=== PATIENT | male | born 1940 | race Caucasian/White ===

== ENCOUNTER 2017-03-05 17:16 | Emergency (ER) | payer OTHER ==
--- NOTE | 2017-03-05 17:29 | EDPHY ---
HPI/HX/ROS/PE/MDM Narrative: CHIEF COMPLAINT: Confusion HPI: The patient is a 76-year-old male with a history of Alzheimer's disease. He was brought to the emergency department tonight by his for the concern of increased confusion since yesterday. She notes general confusion far beyond his baseline. She has been with him essentially constantly over the last 24 hr and denies fall or trauma. The patient apparently urinated in the wrong place last night. No recent illness but does state he has had a mild cough primarily in the evening. He has had no recent brain imaging. History essentially unobtainable from the patient although he denies any current complaints. REVIEW OF SYSTEMS: Aside from elements discussed in the HPI, a comprehensive 10-point review of systems was reviewed and is negative. Obtained from . PMH: Includes Alzheimer's disease, coronary artery disease with stent, dyslipidemia, HTN. SOCIAL HISTORY: . 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 Here accompanied by his . Retired. PHYSICAL EXAM: General:Patient is alert, in no acute distress. ENT:Eyes are normal to inspection. ENT inspection normal. Neck: Normal inspection. Full range of motion. Respiratory:No respiratory distress. Breath sounds normal bilaterally. Cardiovascular: Regular rate and rhythm. Strong peripheral pulses. Normal cap refill. Abdomen:The abdomen is nontender to palpation. There are no peritoneal signs. There are normal bowel sounds. Back: Normal to inspection. No tenderness to palpation. Skin: Normal color. No rash. Warm and dry. Extremities: Normal appearance. Full range of motion. Neuro: Has difficulty following simple commands - it took approximately 5 minutes to get him to sit down in the exam bed. No focal motor deficits. No pronator drift. Normal fluent speech. Gait is somewhat shuffling, broad-based , slow. MDM: This patient presents with acute confusion in the setting of previously diagnosed Alzheimer's dementia. We performed an extensive workup to try and identify a precipitating etiology for change in mental status, but all tests are normal. I see no signs of CVA, SAH, UTI, ACS, PNA, sepsis or trauma. At time of discharge, patient's temperature was re-checked and he is now febrile. Flu swab sent and positive for Flu A. of patient continues to feel comfortable taking patient home. - Data Points Imaging Results: Imaging Impressions Chest X-Ray 03/05/17 17:21 Impression: Nothing acute identified. No evidence for pneumonia or congestive failure. Head CT 03/05/17 18:29 Impression: Nothing acute. Cerebral atrophy. Results communicated to Dr. Daniels in at 19:21 PM General information for patients regarding this examination can be found at [email or web address]. If you have questions or comments about this report, please contact me at [phone] (hospital) or [phone] ([facility]). Imaging: Discussed imaging studies w/ rd scientist Radiologist, I viewed and interpreted images myself Laboratory Results: Laboratory Results 03/05/17 17:41 03/05/17 17:41 03/05/17 03/05/17 03/05/17 20:15 19:20 17:41 WBC RBC Hgb Hct MCV MCH MCHC RDW Plt Count MPV Neut % (Auto) Lymph % (Auto) [place] % (Auto) Eos % (Auto) Baso % (Auto) Nucleat RBC Rel Count Absolute Neuts (auto) Absolute Lymphs (auto) Absolute Monos (auto) Absolute Eos (auto) Absolute Basos (auto) Absolute Nucleated RBC Immature Gran % Immature Gran # Sodium 140 mEq/L mEq/L (134-144) Potassium 4.4 mEq/L mEq/L (3.5-5.2) Chloride 99 mEq/L mEq/L (97-110) Carbon Dioxide 25 mEq/l mEq/l (22-31) Anion Gap 16 mEq/L mEq/L (8-16) BUN 14 mg/dL mg/dL (7-23) Creatinine 1.3 mg/dL mg/dL (0.7-1.3) Estimated GFR 53 Glucose 135 mg/dL H mg/dL (70-100) Calcium 9.6 mg/dL mg/dL (8.5-10.4) Troponin I < 0.012 ng/mL ng/mL (0.000-0.034) Urine Color DARK YELLOW Urine Appearance CLEAR Urine pH 5.5 (5.0-7.5) Ur Specific [place] 1.025 (1.002-1.030) Urine Protein NEGATIVE (NEGATIVE) Urine Ketones TRACE H (NEGATIVE) Urine Blood NEGATIVE (NEGATIVE) Urine Nitrate NEGATIVE (NEGATIVE) Urine Bilirubin NEGATIVE (NEGATIVE) Urine Urobilinogen 0.2 EU EU (0.2-1.0) Ur Leukocyte Esterase NEGATIVE (NEGATIVE) Urine Glucose NEGATIVE (NEGATIVE) Influenza A,B Rapid POSITIVE FOR FLU A H (NEGATIVE) 03/05/17 17:41 WBC 9.91 10^3/uL H 10^3/uL (3.80-9.50) RBC 5.40 10^6/uL 10^6/uL (4.40-6.38) Hgb 16.9 g/dL g/dL (13.7-17.5) Hct 48.8 % % (40.0-51.0) MCV 90.4 fL fL (81.5-99.8) MCH 31.3 pg pg (27.9-34.1) MCHC 34.6 g/dL g/dL (32.4-36.7) RDW 12.7 % % (11.5-15.2) Plt Count 125 10^3/uL L 10^3/uL (150-400) MPV 10.3 fL fL (8.7-11.7) Neut % (Auto) 87.7 % H % (39.3-74.2) Lymph % (Auto) 6.9 % L % (15.0-45.0) [place] % (Auto) 4.6 % % (4.5-13.0) Eos % (Auto) 0.3 % L % (0.6-7.6) Baso % (Auto) 0.2 % L % (0.3-1.7) Nucleat RBC Rel Count 0.0 % % (0.0-0.2) Absolute Neuts (auto) 8.69 10^3/uL H 10^3/uL (1.70-6.50) Absolute Lymphs (auto) 0.68 10^3/uL L 10^3/uL (1.00-3.00) Absolute Monos (auto) 0.46 10^3/uL 10^3/uL (0.30-0.80) Absolute Eos (auto) 0.03 10^3/uL 10^3/uL (0.03-0.40) Absolute Basos (auto) 0.02 10^3/uL 10^3/uL (0.02-0.10) Absolute Nucleated RBC 0.00 10^3/uL 10^3/uL (0-0.01) Immature Gran % 0.3 % % (0.0-1.1) Immature Gran # 0.03 10^3/uL 10^3/uL (0.00-0.10) Sodium Potassium Chloride Carbon Dioxide Anion Gap BUN Creatinine Estimated GFR Glucose Calcium Troponin I Urine Color Urine Appearance Urine pH Ur Specific [place] Urine Protein Urine Ketones Urine Blood Urine Nitrate Urine Bilirubin Urine Urobilinogen Ur Leukocyte Esterase Urine Glucose Influenza A,B Rapid Medications Given: Discontinued Medications Acetaminophen (Tylenol) 650 mg PO EDNOW ONE Stop: 03/05/17 20:22 Last Admin: 03/05/17 20:27 Dose: 650 mg Sodium Chloride (Ns) 500 mls @ 1,000 mls/hr IV EDNOW ONE PRN Reason: Protocol Stop: 03/05/17 18:46 Last Admin: 03/05/17 18:36 Dose: 500 mls Oseltamivir Phosphate (Tamiflu) 75 mg PO EDNOW ONE Stop: 03/05/17 20:50 Last Admin: 03/05/17 20:57 Dose: 75 mg General Time Seen by Provider: 03/05/17 17:20 Initial Vital Signs: Initial Vital Signs Temperature (C) 37.0 C 03/05/17 17:38 Heart Rate 88 03/05/17 17:38 Respiratory Rate 20 03/05/17 17:38 Blood Pressure 118/66 03/05/17 17:38 O2 Sat (%) 94 03/05/17 17:38 O2 Delivery Mode Room Air Allergies/Adverse Reactions: No Known Allergies Allergy (Verified 03/05/17 17:34) Home Medications: Medication Instructions Recorded Aspirin EC [Aspirin EC 81 mg (*)] 81 mg PO HS 11/22/13 Citalopram [CeleXA 20 MG] 10 mg PO Q2D 11/22/13 Ibuprofen [Motrin (*)] 400 mg PO BID 11/22/13 Lisinopril [Zestril 10 mg (*)] 10 mg PO DAILY 11/22/13 Memantine HCl [Namenda Xr] 28 mg PO DAILY 11/22/13 Metoprolol Tartrate [Lopressor 25 25 mg PO BID 11/22/13 mg (*)] Multivitamins [Multivitamin (*)] 1 each PO DAILY 11/22/13 Omeprazole [Prilosec 20 mg] 20 mg PO BID 11/22/13 Clopidogrel Bisulfate [Plavix (*)] 75 mg PO DAILY #30 tab 11/23/13 Donepezil HCl 03/05/17 Fish Oil 1,200 mg Fish Oil 03/05/17 Oseltamivir Phosphate [Tamiflu 75 75 mg PO BID #10 cap 03/05/17 mg (*)] Departure - Departure Clinical Impression: Altered mental status, Influenza A Condition: Good Instructions: Influenza (ED), Altered Mental Status (ED) Additional Instructions: Keep close eye on patient to ensure he does no harm accidentally to himself. Follow-up with your primary doctor on Tuesday for re-evaluation. Return to the ED for worsening mental state, pain, fever, difficulty walking or speaking or other concerns/. Referrals: Poornima Castro MD [Primary Care Provider] - As per Instructions Prescriptions: Oseltamivir Phosphate [Tamiflu 75 mg (*)] 75 mg PO BID #10 cap
[2017-03-05 17:47] LABS: % IMMATURE GRANULYOCYTES 0.3 % (0.0-1.1); ABSOLUTE IMMATURE GRANULOCYTES 0.03 10^3/uL (0.00-0.10); ADD DIFF? NO; ADD MORPH? NO; ADD SCAN? NO; ATYPICAL LYMPHOCYTE FLAG 0 (0-99); FRAGMENT RBC FLAG 0 (0-99); HEMATOCRIT 48.8 % (40.0-51.0); HEMOGLOBIN 16.9 g/dL (13.7-17.5); LEFT SHIFT FLG 0 (0-99); LIPEMIA HEMOLYSIS FLAG 90 (0-99); MEAN CELL HEMOGLOBIN 31.3 pg (27.9-34.1); MEAN CELL HEMOGLOBIN CONCENTR. 34.6 g/dL (32.4-36.7); MEAN CELL VOLUME 90.4 fL (81.5-99.8); MEAN PLATELET VOLUME 10.3 fL (8.7-11.7); PLATELET CLUMPS FLAG 30 (0-99); PLATELET COUNT 125 10^3/uL (150-400); RED CELL DISTRIBUTION WIDTH 12.7 % (11.5-15.2)
--- NOTE | 2017-03-05 17:56 | CPEKG ---
Heart Rate: 93 RR Interval: 645 P-R Interval: 152 QRSD Interval: 80 QT Interval: 340 QTC Interval: 423 P [place]: 61 QRS [place]: 36 T Wave [place]: 85 EKG Severity - ABNORMAL ECG - EKG Impression: SINUS RHYTHM EKG Impression: lateral ST changes Electronically Signed By: Joce Varela 07-Mar-2017 21:35:54
[2017-03-05 18:02] LABS: ANION GAP 16 mEq/L (8-16); CALCIUM 9.6 mg/dL (8.5-10.4); CARBON DIOXIDE 25 mEq/l (22-31); CHLORIDE 99 mEq/L (97-110); CREATININE 1.3 mg/dL (0.7-1.3); GLOMERULAR FILTRATION RATE 53; GLUCOSE 135 mg/dL (70-100); POTASSIUM 4.4 mEq/L (3.5-5.2); SODIUM 140 mEq/L (134-144)
[2017-03-05 18:12] LABS: TROPONIN I < 0.012 ng/mL (0.000-0.034)
[2017-03-05] MEDS ORDERED: NS 500 ML IV ONE (18:17)
[2017-03-05 19:42] LABS: LEUKOCYTE ESTERASE,URINE NEGATIVE (NEGATIVE); NITRITE,URINE NEGATIVE (NEGATIVE); PH,URINE 5.5 (5.0-7.5)
[2017-03-05 19:44] LABS: COLOR DARK YELLOW
[2017-03-05] MEDS ORDERED: ACETAMINOPHEN 325 MG TAB PO ONE (20:21)
[2017-03-05 20:39] VITALS: TEMP 102
[2017-03-05] MEDS ORDERED: OSELTAMIVIR PHOSPHATE 75 MG CAP PO ONE (20:49)
[2017-03-05 20:59] VITALS: BP 123/62; PULSE 88; RESP 20; O2SAT 95
--- NOTE | 2017-03-07 16:14 | CPEKG ---
Heart Rate: 88 RR Interval: 682 P-R Interval: 160 QRSD Interval: 78 QT Interval: 340 QTC Interval: 412 P [place]: 57 QRS [place]: 47 T Wave [place]: 51 EKG Severity - NORMAL ECG - EKG Impression: SINUS RHYTHM Electronically Signed By: Joce Varela 07-Mar-2017 21:35:24
== END 2017-03-05 21:00 | disposition home or self-care (01) ==
LOC: CED 17:16
DX: R41.82 Altered mental status, unspecified (principal); J10.1 Influenza due to other identified influenza virus with other respiratory manifestations; I10 Essential (primary) hypertension; I25.10 Atherosclerotic heart disease of native coronary artery without angina pectoris; Z79.82 Long term (current) use of aspirin; Z95.5 Presence of coronary angioplasty implant and graft
CPT/HCPCS: 70450-PO; 71020-PO; 80048-PO; 81003-PO; 84484-PO; 85025-PO; 87400-PO

== ENCOUNTER 2017-05-10 18:02 | Emergency (ER) | payer OTHER ==
--- NOTE | 2017-05-10 18:18 | EDPHY ---
H & P Time Seen by Provider: 05/10/17 18:04 HPI/ROS: CHIEF COMPLAINT: Dog bite right hand HISTORY OF PRESENT ILLNESS: Got too close to the blind family dog,"Rickie"and was bit on the right hand. Dog's immunizations are up-to-date. Denies foreign body sensation, decrease in range of motion, weakness or numbness in the hand or fingers. REVIEW OF SYSTEMS: Negative PAST MEDICAL HISTORY: Alzheimer's, coronary disease with stenting. Social history: Here with family, discussed with daughter on the phone at his request General Appearance: Alert and conversant, cooperative. Patient has index finger puncture wound dorsum near the DIP. Superficial abrasion with 2 mm puncture on the radial side of the index finger just proximal to the PIP. 1.5 cm laceration on the dorsum of the middle finger over the PIP. Normal range of motion. Normal distal 2 point discrimination and capillary refill in index and middle finger. Normal flexion and extensor tendon function. Emergency Department course/MDM: Anesthetized 0.25% bupivacaine without epinephrine, x-ray of the hand, standard wound care, x-ray performed, oral Augmentin x5 days. Return in 72 hr for evaluation for possible delayed primary closure. Tetanus confirmed as up-to-date with family. Explained to patient and family that I feel risk of infection with primary closure of dog bite wound to hand is high; would not recommend. X-ray right hand personally interpreted as negative. Smoking Status: Former smoker Constitutional: Initial Vital Signs Temperature (C) 36.5 C 05/10/17 18:03 Heart Rate 67 05/10/17 18:03 Respiratory Rate 18 05/10/17 18:03 Blood Pressure 125/65 H 05/10/17 18:03 O2 Sat (%) 96 05/10/17 18:03 O2 Delivery Mode Room Air Allergies/Adverse Reactions: No Known Allergies Allergy (Verified 03/05/17 17:34) Home Medications: Medication Instructions Recorded Aspirin EC [Aspirin EC 81 mg (*)] 81 mg PO HS 11/22/13 Citalopram [CeleXA 20 MG] 10 mg PO Q2D 11/22/13 Ibuprofen [Motrin (*)] 400 mg PO BID 11/22/13 Lisinopril [Zestril 10 mg (*)] 10 mg PO DAILY 11/22/13 Memantine HCl [Namenda Xr] 28 mg PO DAILY 11/22/13 Metoprolol Tartrate [Lopressor 25 25 mg PO BID 11/22/13 mg (*)] Multivitamins [Multivitamin (*)] 1 each PO DAILY 11/22/13 Clopidogrel Bisulfate [Plavix (*)] 75 mg PO DAILY #30 tab 11/23/13 Donepezil HCl 03/05/17 Fish Oil 1,200 mg Fish Oil 03/05/17 Amoxicillin/Clavulanate Pot 875 mg PO BID #10 tab 05/10/17 [Augmentin 875 mg tab] MDM/Departure - MDM Imaging Results: Imaging Impressions Hand X-Ray 05/10/17 18:18 Impression: 1. No acute osseous abnormality. 2. Scattered osteoarthrosis, most apparent in the radiocarpal and carpal metacarpal joints. Imaging: I viewed and interpreted images myself Medications Given: Discontinued Medications Amoxicillin/Clavulanate Potassium (Augmentin 875mg) 875 mg PO EDNOW ONE PRN Reason: Protocol Stop: 05/10/17 18:23 Last Admin: 05/10/17 18:49 Dose: 875 mg - Depart Disposition: Home, Routine, Self-Care Clinical Impression: Laceration of middle finger Qualifiers: Encounter type: initial encounter Damage to nail status: without damage Foreign body presence: without foreign body Laterality: right Qualified Code(s) : S61.212A - Laceration without foreign body of right middle finger without damage to nail, initial encounter Puncture wound of index finger Qualifiers: Encounter type: initial encounter Qualified Code(s): S61.238A - Puncture wound without foreign body of other finger without damage to nail, initial encounter Condition: Good Instructions: Amoxicillin/Clavulanate Potassium (By mouth), Acute Wounds (ED) Additional Instructions: Keep dressing dry and in place, do not get it wet. Return on Saturday 05/13 for wound evaluation and possible delayed closure of the middle finger laceration. Prescriptions: Amoxicillin/Clavulanate Pot [Augmentin 875 mg tab] 875 mg PO BID #10 tab Referrals: NONE *PRIMARY CARE P,. [Primary Care Provider] - As per Instructions
[2017-05-10 18:19] VITALS: BP 125/65; PULSE 67; RESP 18; TEMP 97.7; O2SAT 96
[2017-05-10] MEDS ORDERED: AMOXICILLIN/CLAVULANATE POT 875/125 MG TAB PO ONE (18:22)
== END 2017-05-10 19:00 | disposition home or self-care (01) ==
LOC: CED 18:02
DX: S61.212A Laceration without foreign body of right middle finger without damage to nail, initial encounter (principal); I25.10 Atherosclerotic heart disease of native coronary artery without angina pectoris; G30.9 Alzheimer's disease, unspecified; S61.230A Puncture wound without foreign body of right index finger without damage to nail, initial encounter; Z87.891 Personal history of nicotine dependence; Z95.5 Presence of coronary angioplasty implant and graft; Z79.82 Long term (current) use of aspirin; W54.0XXA Bitten by dog, initial encounter
CPT/HCPCS: 73130-PO

== ENCOUNTER 2017-05-13 15:32 | Emergency (ER) | payer OTHER ==
[2017-05-13 15:36] VITALS: BP 125/62; PULSE 73; RESP 18; TEMP 97.5; O2SAT 95
--- NOTE | 2017-05-13 15:38 | EDPHY ---
H & P Time Seen by Provider: 05/13/17 15:34 HPI/ROS: Chief Complaint: Wound recheck HPI: 76-year-old male who is 3 days status post a dog bite to his right hand. Patient was seen here. He had a negative x-ray. He is presenting for recheck of the wound on the back of his right middle finger. Patient states that the redness has decreased around it. There is some yellowish discharge. Pain is improving as well. No fevers or chills. No streaking up his hand. He has been taking oral antibiotics as prescribed. ROS: 10 point Review of Systems is negative except as noted in the HPI. Family History: [non-contributory] Physical Exam: General: Awake, alert, no acute distress Right hand: He has a 2 cm laceration over the dorsal aspect of his middle phalanx of his right middle finger. There is a scant amount of purulent discharge at the wound edges. There is small amount of erythema approximately 3 mm on either side of the wound edges. The fingers not swollen. His no tenderness along the flexor or extensor tendon sheath. There is no erythema proximal to the PIP joint or over the middle phalanx. There is minimal tenderness. Capillary refills less than 2 sec. Sensations intact. Skin: Per hand exam, otherwise negative. - Personal History Tetanus Vaccine Date: 2011 - Medical/Surgical History Hx Asthma: No Hx Chronic Respiratory Disease: No Hx Diabetes: No Hx Cardiac Disease: Yes Hx Renal Disease: No Hx Cirrhosis: No Hx Alcoholism: No Hx HIV/AIDS: No Hx Splenectomy or Spleen Trauma: No Other PMH: Med hx-alzhemier's,stent-cardiac. Surg-hernia - Social History Smoking Status: Former smoker Allergies/Adverse Reactions: No Known Allergies Allergy (Verified 05/13/17 15:34) Home Medications: Medication Instructions Recorded Aspirin EC [Aspirin EC 81 mg (*)] 81 mg PO HS 11/22/13 Citalopram [CeleXA 20 MG] 10 mg PO Q2D 11/22/13 Ibuprofen [Motrin (*)] 400 mg PO BID 11/22/13 Lisinopril [Zestril 10 mg (*)] 10 mg PO DAILY 11/22/13 Memantine HCl [Namenda Xr] 28 mg PO DAILY 11/22/13 Metoprolol Tartrate [Lopressor 25 25 mg PO BID 11/22/13 mg (*)] Multivitamins [Multivitamin (*)] 1 each PO DAILY 11/22/13 Clopidogrel Bisulfate [Plavix (*)] 75 mg PO DAILY #30 tab 11/23/13 Donepezil HCl 03/05/17 Fish Oil 1,200 mg Fish Oil 03/05/17 Amoxicillin/Clavulanate Pot 875 mg PO BID #10 tab 05/10/17 [Augmentin 875 mg tab] Medical Decision Making ED Course/Re-evaluation: 76-year-old male with a healing dog bite on his right hand. There is small amount of erythema and some purulent discharge. Is not a candidate for delayed closure. Does otherwise healing well. Is appropriate for healing by secondary intention. He will have his daughter who is an emergency physician look at it in 3 days. I have given instructions that if the redness had spread. If he had continues to have fevers or chills. Increasing pain, or any other concerns she should return emergency to the emergency depart for further evaluation. He will continue his oral antibiotics. Departure - Departure Disposition: Home, Routine, Self-Care Clinical Impression: Healing wound, Dog bite Condition: Good Instructions: Animal Bite (ED) Additional Instructions: Please return to the emergency department for increasing pain, increasing discharge from the wound, redness spreading up your hand, increasing swelling, increasing pain, fevers, or any other concerns. Follow up with your physician in 3 days for wound check.
== END 2017-05-13 16:00 | disposition home or self-care (01) ==
LOC: CED 15:32
DX: S61.431D Puncture wound without foreign body of right hand, subsequent encounter (principal); Z87.891 Personal history of nicotine dependence; Z95.5 Presence of coronary angioplasty implant and graft; Z79.82 Long term (current) use of aspirin; W54.0XXD Bitten by dog, subsequent encounter